=== PATIENT | female | born 1980 | race African-American/Black ===

== ENCOUNTER 2016-08-11 13:33 | Emergency (ER) | payer SELFPAY ==
[~2016-08-11] VITALS: Ht 165.1 cm; Wt 99.5 kg
[~2016-08-11 13:33] MED LIST: LANS30CA PO; METO-448 PO
[2016-08-11 13:40] VITALS: Ht 165.1 cm; Wt 99.5 kg
== END 2016-08-11 17:45 | disposition left against medical advice (07) ==
LOC: E/R 13:33
DX: Z53.21 Procedure and treatment not carried out due to patient leaving prior to being seen by health care provider (principal)

== ENCOUNTER 2016-11-09 20:36 | Emergency (ER) | payer OTHER ==
[~2016-11-09] VITALS: Ht 172.7 cm; Wt 84.0 kg
[2016-11-09 20:42] VITALS: Ht 172.7 cm; Wt 84.0 kg
[2016-11-09] MEDS ORDERED: ONDANSETRON 4 MG INJ IV STA (21:18)
[2016-11-09] MEDS ORDERED: LIDOCAINE/MYLANTA 40 ML BTL PO ONE (21:30)
[2016-11-09] MEDS ORDERED: FAMOTIDINE 20 MG TAB PO ONE (21:30)
[2016-11-09] MEDS ORDERED: PANT40TA4 PO (21:47)
[2016-11-09 22:41] LABS: BASOPHIL # 0.1 10^3/ul (0.0-0.1); BASOPHILS % 0.5 % (0.0-2.0); EOSINOPHILS # 0.3 10^3/ul (0.0-0.5); EOSINOPHILS % 2.4 % (0.0-7.0); HEMATOCRIT 38.7 % (37.0-47.0); LYMPHOCYTES # 2.9 10^3/ul (0.8-2.9); LYMPHOCYTES % 22.2 % (15.0-51.0); MEAN CORPUSCULAR HEMOGLOBIN 24.7 pg (29.0-33.0); MEAN CORPUSCULAR VOLUME 79.6 fl (82.0-101.0); MEAN PLATELET VOLUME 11.1 fl (7.4-10.4); MONOCYTE # 0.7 10^3/ul (0.3-0.9); MONOCYTES % 5.5 % (0.0-11.0); NEUTROPHIL # 9.1 10^3/ul (1.6-7.5); NEUTROPHILS % 68.9 % (39.0-77.0); PLATELET COUNT 274 10^3/UL (140-415); RED BLOOD COUNT 4.86 10^6/ul (4.20-5.40); RED CELL DISTRIBUTION WIDTH 15.3 % (11.5-14.5); WHITE BLOOD COUNT 13.2 10^3/ul (4.8-10.8)
[2016-11-09 23:23] LABS: ANION GAP 10 (8-16); BLOOD UREA NITROGEN 8 mg/dl (7-20); CALCIUM 9.1 mg/dl (8.4-10.2); CARBON DIOXIDE 26 mmol/L (21-31); CHLORIDE 106 mmol/L (97-110); CREATININE 0.76 mg/dl (0.44-1.00); GLUCOSE 99 mg/dl (70-220); POTASSIUM 3.9 mmol/L (3.5-5.1); SODIUM 138 mmol/L (135-144)
--- NOTE | 2016-11-09 23:31 | RADRPT ---
PROCEDURE: Chest. CLINICAL INDICATION: Chest pain. TECHNIQUE: Single frontal view of the chest was obtained. COMPARISON: 04/09/2014. FINDINGS: The cardiac silhouette is within normal limits. The aortic arch is unremarkable. There is no focal consolidation, vascular congestion or pleural effusion. There is no pneumothorax. IMPRESSION: No evidence for active cardiopulmonary disease. .Mateo Ortiz MD, Date Time Electronically viewed and signed by .Mateo Ortiz MD, on 11/09/2016 23:31 .T/
--- NOTE | 2016-11-09 23:41 | ERD ---
ER Documentation Chief Complaint Date/Time DATE: 11/09/16 TIME: 23:41 Chief Complaint bib ra 81 for cp since this morning, no radiating, no sob, hx of anxiety HPI This is a 36-year-old female with a history of hypertension and GERD who is presenting with an episode of epigastric discomfort radiating into the right parasternal chest, dull and aching in nature with episodes of belching after eating chicken noodle soup this evening. The radiation into the right chest was concerning to her which prompted her to call an ambulance. The patient's symptoms resolved on their own prior to arrival. She denies feeling sick. She does not endorse fever or chills. She has no headache or vision changes. She has no current chest pain. She has not been diaphoretic. She was never short of breath. She was never lightheaded or dizzy. She does have frequent episodes of epigastric pain, but this too has subsided. She denies any changes to bowel movements urination. She has had no focal deficits. ROS All systems reviewed and are negative except as per history of present illness. Medications Home Meds Reported Medications Pantoprazole* (Pantoprazole*) 40 Mg Tablet.dr, 40 MG PO DAILY, TAB 11/09/16 Metoprolol Tartrate* (Lopressor*) 25 Mg Tab, 25 MG PO DAILY 11/29/10 Discontinued Reported Medications Lansoprazole* (Lansoprazole*) 30 Mg Capsule.dr, 30 MG PO DAILY, CAP 04/09/14 Allergies Allergies: Coded Allergies: No Known Allergy (Verified , 11/09/16) PMhx/Soc History of Surgery: Yes (csection) Anesthesia Reaction: No Hx Neurological Disorder: No Hx Respiratory Disorders: No Hx Cardiac Disorders: Yes (HTN) Hx Psychiatric Problems: Yes (ptsd) Hx Miscellaneous Medical Probl: Yes (acid reflux ds) Hx Alcohol Use: No Hx Substance Use: No Hx Tobacco Use: Yes Smoking Status: Never smoker FmHx Family History: No coronary disease, No diabetes Physical Exam Vitals Vital Signs Date Time Temp Pulse Resp B/P Pulse Ox O2 Delivery O2 Flow Rate FiO2 11/09/16 21:33 Nasal Cannula 2 11/09/16 20:42 98.5 85 18 126/81 100 Physical Exam Const: NAD, Well Developed, Well nourished Head: Atraumatic Eyes: Normal Conjunctiva ENT: Normal External Ears, Nose and Mouth. Neck: Full range of motion. ~ No meningismus. Resp: Clear to auscultation bilaterally Cardio: Regular rate and rhythm, no murmurs Abd: Obese, soft, non tender, non distended. Normal bowel sounds Skin: No petechiae or rashes Back: No midline or flank tenderness Ext: No cyanosis, or edema Neur: Awake and alert, Normal Sensation, Normal Strength, Normal coordination Psych: Normal Mood and Affect Result Diagram: 11/09/16221111/09/162211 Results 24 hrs Laboratory Tests Test 11/09/16 22:12 White Blood Count 13.210^3/ul Red Blood Count 4.8610^6/ul Hemoglobin 12.0g/dl Hematocrit 38.7% Mean Corpuscular Volume 79.6fl Mean Corpuscular Hemoglobin 24.7pg Mean Corpuscular Hemoglobin Concent 31.0g/dl Red Cell Distribution Width 15.3% Platelet Count 49358^3/UL Mean Platelet Volume 11.1fl Neutrophils % 68.9% Lymphocytes % 22.2% Monocytes % 5.5% Eosinophils % 2.4% Basophils % 0.5% Nucleated Red Blood Cells % 0.0/100WBC Neutrophils # 9.110^3/ul Lymphocytes # 2.910^3/ul Monocytes # 0.710^3/ul Eosinophils # 0.310^3/ul Basophils # 0.110^3/ul Nucleated Red Blood Cells # 0.010^3/ul Sodium Level 138mmol/L Potassium Level 3.9mmol/L Chloride Level 106mmol/L Carbon Dioxide Level 26mmol/L Anion Gap 10 Blood Urea Nitrogen 8mg/dl Creatinine 0.76mg/dl Glucose Level 99mg/dl Calcium Level 9.1mg/dl Troponin I < 0.012ng/ml Current Medications Medications (Trade) Dose Ordered Sig/Gregg Route PRN Reason Start Time Stop Time Status Last Admin Dose Admin Famotidine (Pepcid) 20 mg ONCE ONCE PO 11/09/16 21:30 11/09/16 21:31 DC Miscellaneous Medication (Gi Cocktail (2)) 40 ml ONCE ONCE PO 11/09/16 21:30 11/09/16 21:31 DC Ondansetron HCl (Zofran Inj) 4 mg ONCE STAT IV 11/09/16 21:18 11/09/16 21:19 DC Procedures/MDM MDM Patient's presentation warrants further investigation. Patient has a long- standing history of epigastric pain with belching. Her symptoms sound more consistent with this, but she does endorse a dull aching right sternal chest discomfort, which has reportedly only recently, on. This does warrant a cardiac workup. LABS The patient's blood work was obtained and reviewed. The patient seemed shows leukocytosis or left shift. The patient is afebrile, and I do not suspect a systemic infection. This is likely reactive. The patient is not anemic today. The patient's platelet count is unremarkable. The patient's CMP shows no signs of metabolic or electrolyte abnormality. The patient has normal renal and hepatic function testing. Her troponin is negative. EKG EKG read by me: Rate/Rhythm: Regular rate and rhythm at a rate of 75 Intervals: Normal [place]: Normal Nonspecific T-wave flattening in the inferior and lateral leads Impression: No evidence of acute ischemia or arrhythmia IMAGING CXR FINDINGS: The cardiac silhouette is within normal limits. The aortic arch is unremarkable. There is no focal consolidation, vascular congestion or pleural effusion. There is no pneumothorax. IMPRESSION: No evidence for active cardiopulmonary disease. Electronically viewed and signed by .Mateo Ortiz MD, MD on 11/09/2016 23:31 TREATMENT/DISPOSITION The patient's heart score is 1 for nonspecific repolarization abnormalities. The patient's troponin is negative. I have low suspicion. She has no risk factors and she is still young. The patient declined all medications for her epigastric discomfort. She was instructed to follow-up with her primary care physician in 1-3 days for reevaluation. She will be given precautions with which to return to the emergency department. Departure Diagnosis: Primary Impression: Chest pain of uncertain etiology Additional Impression: Epigastric pain Condition: AKIRA Rasheed MD Nov 09, 2016 23:41
[2016-11-09 23:42] LABS: TROPONIN-I < 0.012 ng/ml (0.00-0.12)
== END 2016-11-10 00:53 | disposition home or self-care (01) ==
LOC: E/R 20:36
DX: R07.9 Chest pain, unspecified (principal); I10 Essential (primary) hypertension; Z87.891 Personal history of nicotine dependence
CPT/HCPCS: 36415; 71010; 80048; 84484; 85025; 93005